=== PATIENT | female | born 1945 | race Caucasian/White ===

== ENCOUNTER 2018-02-25 05:44 | Day surgery (SDC) | payer MEDICARE, OTHER ==
[2018-02-25] MEDS ORDERED: DIPRIVAN 200 MG/20 ML IV ONE (05:45)
[2018-02-25] MEDS ORDERED: Lactated Ringers 1,000 ML IV SCH (06:30)
[2018-02-25 08:36] VITALS: PULSE 70; O2SAT 97
[2018-02-25 08:58] VITALS: BP 155/85
--- NOTE | 2018-02-25 12:53 | OP ---
SURGERY DATE/TIME: 02/25/2018 0658 PREOPERATIVE DIAGNOSIS: Screening exam. POSTOPERATIVE DIAGNOSIS: Normal colon. PROCEDURE: Colonoscopy. SURGEON: Dr. Pederson. ANESTHESIA: MAC. Medications given by anesthesia department. HISTORY: The patient is a 72 year-old white female presenting now for colonoscopic evaluation. She was appraised of the risks of the procedure including the risk of perforation, phlebitis, untoward reaction to medication, bleeding and missed lesions. The patient verbalized her understanding and desired to have the procedure performed. DESCRIPTION OF PROCEDURE: The patient was given the medications by the anesthesia department. She had continuous pulse oximetry, ECG monitoring, intermittent blood pressure monitoring and tidal CO2 monitoring during the examination. She was placed in the left lateral decubitus position. A digital rectal examination was performed and revealed normal anal sphincter tone and no masses. The flexible Olympus pediatric colonoscope was used to intubate the rectum. A view of the colon was developed sequentially to the cecum. Upon insertion and withdrawal, including a retroflex view in the rectum, no mucosal lesions were encountered. The scope was removed from the patient who tolerated the procedure well and was sent back to OP recovery in good condition. The prep was noted to be fair.
== END 2018-02-25 08:55 | disposition home or self-care (01) ==
LOC: SDC 05:44
PROVIDERS: ATTEND Family Medicine
DX: Z12.11 Encounter for screening for malignant neoplasm of colon (principal)
CPT/HCPCS: 99100; J2704

== ENCOUNTER 2022-11-17 21:41 | Emergency (ER) | payer MEDICARE, OTHER ==
--- NOTE | 2022-11-17 22:58 | ERPHSYRPT ---
- History of Present Illness Time Seen by Provider: 11/17/22 22:58 Source: patient Exam Limitations: no limitations Physician History: Patient presents w/ worsening BP over the past week BP 190s/100s at home She reports EVANS and nausea, but denies CP, palpitations, SOB or vomiting. She is compliant w/ BP meds No recent med changes Recently took abx for tooth infection Timing/Duration: day(s) (3), gradual onset Activities at Onset: none Quality: other (na) Location: other (na) Severity of Pain-Max: none Severity of Pain-Current: none Modifying Factors: Improves With: other (na) Nitro Today/Relief: no nitro taken today Aspirin Treatment Today: no aspirin today Associated Symptoms: nausea, headaches, No vomiting, No abdominal pain, No shortness of breath, No heartburn, No diaphoresis, No cough, No chills, No chest pain, No fever Prior Chest Pain/Cardiac Workup: no prior chest pain Allergies/Adverse Reactions: Sulfa (Sulfonamide Antibiotics) Allergy (Intermediate, Verified 11/17/22 23:10) Diarrhea Home Medications: Amoxicillin 500 mg PO Q6H 11/17/22 [History] Famotidine 20 mg [Pepcid 20 MG] 20 mg PO BID 11/17/22 [History] Lisinopril 10 mg [Zestril 10 MG] 10 mg PO DAILY 11/17/22 [History] Metoprolol Succinate 25 mg PO BID 11/17/22 [History] Omeprazole 40 mg PO DAILY 11/17/22 [History] Rosuvastatin Calcium 20 mg PO HS 11/17/22 [History] - Review of Systems Constitutional: No Symptoms Eyes: No Symptoms Ears, Nose, & Throat: No Symptoms Respiratory: No Symptoms Cardiac: No Symptoms Abdominal/Gastrointestinal: Nausea, No Abdominal Pain, No Vomiting, No Diarrhea, No Constipation, No Hematemesis, No Hematochezia, No Melena, No Appetite Changes Genitourinary Symptoms: No Symptoms Musculoskeletal: No Symptoms Skin: No Symptoms Neurological: No Symptoms Psychological: No Symptoms Endocrine: No Symptoms Hematologic/Lymphatic: No Symptoms Immunological/Allergic: No Symptoms - Past Medical History Pertinent Past Medical History: Yes Neurological History: No Pertinent History ENT History: No Pertinent History Cardiac History: No Pertinent History Respiratory History: No Pertinent History Endocrine Medical History: No Pertinent History Musculoskeletal History: Fractures GI Medical History: GERD, Polyps History: No Pertinent History Psycho-Social History: No Pertinent History Female Reproductive Disorders: No Pertinent History Other Medical History: REFLUX, VITAMIN D DEFICIENCY - Past Surgical History Past Surgical History: Yes Neuro Surgical History: No Pertinent History Cardiac: No Pertinent History Respiratory: No Pertinent History Gastrointestinal: No Pertinent History Genitourinary: No Pertinent History Musculoskeletal: Orthopedic Surgery Female Surgical History: Hysterectomy Other Surgical History: left knee scope - Social History Smoking Status: Never smoker Exposure to second hand smoke: No Drug Use: none - Nursing Vital Signs Nursing Vital Signs: Initial Vital Signs Temperature 97.2 F 11/17/22 22:51 Pulse Rate 68 11/17/22 22:51 Respiratory Rate 18 11/17/22 22:51 Blood Pressure 175/79 11/17/22 22:51 O2 Sat by Pulse Oximetry 98 11/17/22 22:51 Pain Scale Pain Intensity 0 - Physical Exam General Appearance: no apparent distress Eye Exam: PERRL/EOMI, eyes nml inspection Ears, Nose, Throat Exam: normal ENT inspection Neck Exam: normal inspection, non-tender, supple, full range of motion Respiratory Exam: normal breath sounds, lungs clear, airway intact, No chest tenderness, No respiratory distress Cardiovascular Exam: regular rate/rhythm, normal heart sounds, capillary refill <2 sec, No edema Gastrointestinal/Abdomen Exam: soft, normal bowel sounds, No tenderness Extremity Exam: normal inspection, normal range of motion, No swelling, No tenderness Neurologic Exam: alert, oriented x 3, cooperative, scientific software developer II-XII nml as tested, normal mood/affect, nml cerebellar function, nml station & gait, sensation nml, No slurred speech, No aphasia, No dysarthria Skin Exam: normal color, warm, dry SpO2 Interpretation: normal O2 Delivery: Room Air - Course Nursing assessment & vital signs reviewed: Yes EKG Interpreted by Me: RATE (69), Sinus Rhythm, NORMAL AXIS, NORMAL INTERVALS, NORMAL ST-T Ordered Tests: Medication Summary Discontinued Medications Generic Name Dose Route Start Last Admin Trade Name Freq PRN Reason Stop Dose Admin Hydralazine HCl 10 mg 11/17/22 23:14 11/17/22 23:54 Hydralazine Hcl 20 Mg/Ml Vial IV 11/17/22 23:15 10 mg STAT ONE Administration Hydralazine HCl Confirm 11/17/22 23:51 Hydralazine Hcl 20 Mg/Ml Vial Administered 11/17/22 23:52 Dose 20 mg .ROUTE .STK-MED ONE Lab/Rad Data: Laboratory Result Diagrams 11/17/22 23:20 11/17/22 23:20 Laboratory Results 11/17/22 11/17/22 11/17/22 Range/Units 23:20 23:20 23:20 WBC 4.7 (4.0-10.5) x10^3/uL RBC 4.34 (4.1-5.4) x10^6/uL Hgb 11.8 L (12.0-16.0) g/dL Hct 37.4 (35-47) % MCV 86.2 (78-100) fL MCH 27.2 (26-32) pg MCHC 31.6 L (32-36) g/dL RDW 13.9 (11.5-14.0) % Plt Count 221 (150-450) x10^3/uL MPV 10.5 (7.5-11.0) fL Gran % 56.7 (36.0-66.0) % Immature Gran % (Auto) 0.4 (0.00-0.4) % Nucleat RBC Rel Count 0.0 (0.00-0.1) % Eos # (Auto) 0.15 (0-0.5) x10^3/uL Immature Gran # (Auto) 0.02 (0.00-0.03) x10^3u/L Absolute Lymphs (auto) 1.31 (1.0-4.6) x10^3/uL Absolute Monos (auto) 0.52 (0.0-1.3) x10^3/uL Absolute Nucleated RBC 0.00 (0.00-0.01) x10^3u/L Lymphocytes % 27.6 (24.0-44.0) % Monocytes % 11.0 (0.0-12.0) % Eosinophils % 3.2 (0.00-5.0) % Basophils % 1.1 (0.0-0.4) % Absolute Granulocytes 2.69 (1.4-6.9) x10^3/uL Basophils # 0.05 (0-0.4) x10^3/uL Sodium 140 (137-145) mmol/L Potassium 3.6 (3.5-5.1) mmol/L Chloride 108 H (98-107) mmol/L Carbon Dioxide 27 (22-30) mmol/L Anion Gap 8.5 (5-15) MEQ/L BUN 15 (7-17) mg/dL Creatinine 0.61 (0.52-1.04) mg/dL Estimated GFR > 60.0 ML/MIN Glucose 117 H (74-106) mg/dL Lactic Acid (0.4-2.0) Calcium 8.8 (8.4-10.2) mg/dL Magnesium 2.1 (1.6-2.3) mg/dL Total Bilirubin 0.40 (0.2-1.3) mg/dL AST 27 (14-36) U/L ALT 24 (0-35) U/L Alkaline Phosphatase 109 (38-126) U/L Troponin I < 0.012 (0.000-0.034) ng/mL NT-Pro-B Natriuret Pep 280 (<300) pg/mL Serum Total Protein 6.8 (6.3-8.2) g/dL Albumin 3.8 (3.5-5.0) g/dL TSH 3rd Generation 4.140 (0.47-4.68) mIU/L 11/17/22 Range/Units 23:19 WBC (4.0-10.5) x10^3/uL RBC (4.1-5.4) x10^6/uL Hgb (12.0-16.0) g/dL Hct (35-47) % MCV (78-100) fL MCH (26-32) pg MCHC (32-36) g/dL RDW (11.5-14.0) % Plt Count (150-450) x10^3/uL MPV (7.5-11.0) fL Gran % (36.0-66.0) % Immature Gran % (Auto) (0.00-0.4) % Nucleat RBC Rel Count (0.00-0.1) % Eos # (Auto) (0-0.5) x10^3/uL Immature Gran # (Auto) (0.00-0.03) x10^3u/L Absolute Lymphs (auto) (1.0-4.6) x10^3/uL Absolute Monos (auto) (0.0-1.3) x10^3/uL Absolute Nucleated RBC (0.00-0.01) x10^3u/L Lymphocytes % (24.0-44.0) % Monocytes % (0.0-12.0) % Eosinophils % (0.00-5.0) % Basophils % (0.0-0.4) % Absolute Granulocytes (1.4-6.9) x10^3/uL Basophils # (0-0.4) x10^3/uL Sodium (137-145) mmol/L Potassium (3.5-5.1) mmol/L Chloride (98-107) mmol/L Carbon Dioxide (22-30) mmol/L Anion Gap (5-15) MEQ/L BUN (7-17) mg/dL Creatinine (0.52-1.04) mg/dL Estimated GFR ML/MIN Glucose (74-106) mg/dL Lactic Acid 0.7 (0.4-2.0) Calcium (8.4-10.2) mg/dL Magnesium (1.6-2.3) mg/dL Total Bilirubin (0.2-1.3) mg/dL AST (14-36) U/L ALT (0-35) U/L Alkaline Phosphatase (38-126) U/L Troponin I (0.000-0.034) ng/mL NT-Pro-B Natriuret Pep (<300) pg/mL Serum Total Protein (6.3-8.2) g/dL Albumin (3.5-5.0) g/dL TSH 3rd Generation (0.47-4.68) mIU/L - Progress Progress: improved Air Movement: good Progress Note: Patient given Hydralazine and BP responded well. Patient denied EVANS or nausea after BP improved. CP w/u neg for cardiac etiology. Hb was found to be 11.8. I increased her Lisinopril to 20mg BID from 10mg BID. I encouraged her to keep a BP log and f/u w/ her PCP for further management. Counseled pt/family regarding: lab results, diagnosis, need for follow-up Medical Desision Making - Diagnostic Testing Diagnostic test were ordered, analyzed, and reviewed by me: Yes - Risk of complications The pt has a mod risk of morbidity or mortality based on: Need for prescription drug management - Departure Departure Disposition: Home Clinical Impression: Hypertensive urgency Condition: Good Critical Care Time: No Referrals: ALAN LEWIS NP [Primary Care Provider] - Follow up/PCP as directed Instructions: Malignant Hypertension (DC) Additional Instructions: Take 2 10mg tablets of Lisinopril twice a day until your current script runs out, then start the 20mg tablet twice a day after. Please keep a log of your BP for your supervisor car and yard. Prescriptions: Lisinopril 20 mg [Zestril 20 MG] 20 mg PO BID #30 tablet
[2022-11-17] MEDS ORDERED: APRESOLINE 20 MG/ML INJ IV ONE (23:14)
[2022-11-17 23:24] LABS: Absolute Neutrophil Ct (ANC) 2.69 x10^3/uL (1.4-6.9); BASOPHIL % 1.1 % (0.0-0.4); Basophil (Absolute #) 0.05 x10^3/uL (0-0.4); Eosinophil % 3.2 % (0.00-5.0); Eosinophil (Absolute #) 0.15 x10^3/uL (0-0.5); Hematocrit 37.4 % (35-47); Hemoglobin 11.8 g/dL (12.0-16.0); IMMATURE GRAN # 0.02 x10^3u/L (0.00-0.03); IMMATURE GRAN % 0.4 % (0.00-0.4); Lymphocyte (Absolute #) 1.31 x10^3/uL (1.0-4.6); Lymphocytes % 27.6 % (24.0-44.0); Mean Cell Volume 86.2 fL (78-100); Mean Corpuscular Hemoglobin 27.2 pg (26-32); Mean Corpuscular Hgb Concent. 31.6 g/dL (32-36); Mean Platelet Volume 10.5 fL (7.5-11.0); Monocyte (Absolute #) 0.52 x10^3/uL (0.0-1.3); Neutrophil % 56.7 % (36.0-66.0); Platelet Count 221 x10^3/uL (150-450); Red Blood Count 4.34 x10^6/uL (4.1-5.4); Red Cell Distribution Width 13.9 % (11.5-14.0); White Blood Count 4.7 x10^3/uL (4.0-10.5)
[2022-11-17] MEDS ORDERED: APRESOLINE 20 MG/ML INJ ONE (23:51)
[2022-11-18 00:12] LABS: ALBUMIN 3.8 g/dL (3.5-5.0); ALKALINE PHOSPHATASE 109 U/L (38-126); ANION GAP 8.5 MEQ/L (5-15); BLOOD UREA NITROGEN 15 mg/dL (7-17); CHLORIDE 108 mmol/L (98-107); Calcium 8.8 mg/dL (8.4-10.2); Carbon Dioxide 27 mmol/L (22-30); Creatinine 1 0.61 mg/dL (0.52-1.04); EST GLOMERULAR FILTRATION RATE > 60.0 ML/MIN; Glucose 117 mg/dL (74-106); MAGNESIUM 2.1 mg/dL (1.6-2.3); NT PRO BNPII 280 pg/mL (<300); Potassium 3.6 mmol/L (3.5-5.1); SGOT/AST 27 U/L (14-36); SGPT/ALT 24 U/L (0-35); SODIUM 140 mmol/L (137-145); Total Protein 6.8 g/dL (6.3-8.2)
[2022-11-18 00:37] VITALS: PULSE 78; O2SAT 98
[2022-11-18 01:10] VITALS: BP 148/94
== END 2022-11-18 01:09 | disposition home or self-care (01) ==
LOC: ED 21:41
DX: I16.0 Hypertensive urgency (principal); I10 Essential (primary) hypertension; Z79.899 Other long term (current) drug therapy
CPT/HCPCS: 36000; 36415; 80053; 83605; 83735; 83880; 84443; 84484; 85025; 93005; 93041; 96374; 99284; J0360

== ENCOUNTER 2025-05-23 15:53 | Emergency (ER) | payer MEDICARE, OTHER ==
[2025-05-23 17:34] VITALS: BP 188/78; TEMP 95.8; O2SAT 98
[2025-05-23 19:40] VITALS: PULSE 86; RESP 20
--- NOTE | 2025-05-23 19:44 | ERPHSYRPT ---
- History of Present Illness Time Seen by Provider: 05/23/25 19:36 Source: patient, family Exam Limitations: no limitations Patient Subjective Stated Complaint: fell and landed on left hand Triage Nursing Assessment: pt presents to ER with daughter she is ambulating by self , gait is steady, patient was coming home from work and slipped on cement and fell and caught herself with herleft hand and its now swolen and bruised all over extremely painful concerned she might have broke. no open areas, radial pulses present.patient states thumb has tingling sensation running in it when moving Physician History: Pt had onset of paIN/SWELLING LEFT WRIST AFTER FALL TRIPPING ON CONCRETE. sHE HAS NO OTHER SYMPTOMS OR REPORTED INJURIES AND HAD NO DIZZINESS OR PRODROME AND ON NO BLOOD THINNER OTHER THAN DAILY asa. She has full ROM all other ext , elbow , shoulder or affected left wrist and chest abd and entire spine all nontender . N/V intact diatally on exam. I advised that even though we see no fx on x-ray, there still can be a fracture of schaphopid or other which may take time to appear on x-ray, and we will Discussed with pt and available family risks and benefits of testing/Tx including xray and splinting as possible occult Fx scaphoid or other wrist injuries. and they wish to proceed so these are ordered. Results discussed with pt and available family. I also advised that there still could be additional undetected occult injuries but pt and family feel that they are OK with no furhter w/u in ER and that is reasonable in absence of symptoms or findings and they will return if other symptoms and have the capacity to make this choice. WIll have her see orhto clinic Sunday or return meantime if any concerns. Occurred: this afternoon Method of Injury: fell Quality: constant, aching Severity of Pain-Max: moderate Severity of Pain-Current: moderate Extremities Pain Location: wrist: left, thumb: left Modifying Factors: Improves With: cold therapy, immobilization, movement Associated Symptoms: none Allergies/Adverse Reactions: Sulfa (Sulfonamide Antibiotics) Allergy (Intermediate, Verified 05/23/25 17:39) Diarrhea Home Medications: Famotidine 20 mg [Pepcid 20 MG] 20 mg PO BID 11/17/22 [History] Lisinopril 10 mg [Zestril 10 MG] 10 mg PO DAILY 11/17/22 [History] Metoprolol Succinate 25 mg PO BID 11/17/22 [History] Omeprazole 40 mg PO DAILY 11/17/22 [History] Rosuvastatin Calcium 20 mg PO HS 11/17/22 [History] Hx Tetanus, Diphtheria Vaccination/Date Given: Yes Hx Influenza Vaccination/Date Given: Yes Hx Pneumococcal Vaccination/Date Given: Yes Travel Risk - International Travel Have you traveled outside of the country in past 3 weeks: No - Emerging Infectious Disease Are you exhibiting symptoms associated with any current EIDs: No - Review of Systems Constitutional: No Fever, No Chills Eyes: No Symptoms Ears, Nose, & Throat: No Symptoms Respiratory: No Cough, No Dyspnea Cardiac: No Chest Pain, No Edema, No Syncope Abdominal/Gastrointestinal: No Abdominal Pain, No Nausea, No Vomiting, No Diarrhea Genitourinary Symptoms: No Dysuria Musculoskeletal: Fall, Injury, Joint Pain, Joint Swelling, No Back Pain, No Neck Pain Skin: No Rash Neurological: No Dizziness, No Focal Weakness, No Sensory Changes Psychological: No Symptoms Endocrine: No Symptoms Hematologic/Lymphatic: No Symptoms Immunological/Allergic: No Symptoms All Other Systems: Reviewed and Negative - Past Medical History Pertinent Past Medical History: Yes Neurological History: No Pertinent History ENT History: No Pertinent History Cardiac History: No Pertinent History Respiratory History: No Pertinent History Endocrine Medical History: No Pertinent History Musculoskeletal History: Fractures GI Medical History: GERD, Polyps History: No Pertinent History Psycho-Social History: No Pertinent History Female Reproductive Disorders: No Pertinent History Other Medical History: REFLUX, VITAMIN D DEFICIENCY - Past Surgical History Past Surgical History: Yes Neuro Surgical History: No Pertinent History Cardiac: No Pertinent History Respiratory: No Pertinent History Gastrointestinal: No Pertinent History Genitourinary: No Pertinent History Musculoskeletal: Orthopedic Surgery Female Surgical History: Hysterectomy Other Surgical History: left knee scope - Social History Smoking Status: Never smoker Exposure to second hand smoke: No Drug Use: none - Social Determinants of Health Will the patient participate in the screening: Yes Do you worry about a steady place to live?: No Do you have any problems with any of the following?: No known problems In the past 12 months,have you had to go without utilities?: No Transportation Issues: No Has anyone in your support network made you feel unsafe?: No Have you or anyone in your house had to go w/o enough food: No - Nursing Vital Signs Nursing Vital Signs: Initial Vital Signs Temperature 95.8 F 05/23/25 16:54 Pulse Rate 64 05/23/25 16:54 Respiratory Rate 12 05/23/25 16:54 Blood Pressure 188/78 05/23/25 16:54 O2 Sat by Pulse Oximetry 98 05/23/25 16:54 Pain Scale Pain Intensity 6 - Physical Exam General Appearance: alert Eyes, Ears, Nose, Throat Exam: moist mucous membranes Neck Exam: normal inspection, non-tender, supple, full range of motion Cardiovascular/Respiratory Exam: chest non-tender, normal breath sounds, regular rate/rhythm, no respiratory distress Abdominal Exam: non-tender, No guarding Back Exam: normal inspection, normal range of motion, No vertebral tenderness Shoulder Exam: normal inspection, non-tender, no evidence of injury, normal ROM Elbow/Forearm Exam: normal inspection, non-tender, no evidence of injury, normal ROM Wrist Exam: bone tenderness (left schaphoid), ecchymosis, swelling Hand Exam: normal ROM, bone tenderness (left schaphoid and base of thumb) DTR - Upper Extremity Exam: bicep (R): 2+, bicep (L): 2+, tricep (R): 2+, tricep (L): 2+ Neuro/Tendon Exam: normal sensation, normal motor functions, normal tendon functions, no evidence tendon injury Mental Status Exam: alert, oriented x 3, cooperative Skin Exam: normal color, warm, dry SpO2 Interpretation: normal SpO2: 98 O2 Delivery: Room Air Procedures - Splinting Time of Procedure: 19:46 Location of Splint: Left, Hand, Wrist Type of Splint: Velcro Splint Splint Applied By: ED Nurse Pre-Proc Neuro Vasc Exam: normal Post-Proc Neuro Vasc Exam: neurovascular intact, good alignment, unchanged from pre-exam - Course Nursing assessment & vital signs reviewed: Yes - Radiology Exams Left Wrist X-ray Interpretation: Interpreted by me, Other (no obvious fracture - splint applied due to risk of occult schphoid fx) Ordered Tests: Active Orders 24 hr Category Date Time Status HAND (MINIMUM 3 VIEWS) Stat Exams 05/23/25 17:39 Taken - Progress Progress: improved, re-examined Progress Note: 05/23/25 19:53 pt declines pain med at this time. Counseled pt/family regarding: diagnosis, need for follow-up, rad results Medical Desision Making - Independent Historian Additional History obtained from: Family - Discussion of managment Reviewed:: Test results, Need for additional workup Will see patient: In office - Diagnostic Testing Diagnostic test were ordered, analyzed, and reviewed by me: Yes Radiological Interpretation: Interpreted by me - Risk of complications The pt has a mod risk of morbidity or mortality based on: Need for prescription drug management - Departure Departure Disposition: Home Clinical Impression: left wrist injury in scaphoid area Condition: Good Critical Care Time: No Referrals: ALAN LEWIS NP [Primary Care Provider, [facility]] - Follow up/P CP as directed Instructions: Hand Fracture (DC), Wrist fracture, Hand Fracture ED Additional Instructions: followup with your DrGreg on your blood pressure which was a little high. We are treating as though there could be a wrist fracture and would like you to see the ORtho clinic Sunday to consider cast and final x-ray review. Return meantime if any other symptoms or concerns as with a fall there can be initially undetected injuries without symptoms.
--- NOTE | 2025-05-23 20:29 | XRAY ---
Indication: Pain following fall. Comparison: None 3 view left hand demonstrates osteopenia, moderate/advanced 1st metacarpal multangular scaphoid degenerative changes, radiocarpal joint space narrowing, and ulnocarpal degenerative chondrocalcinosis. No acute bony, articular, or soft tissue abnormalities.
== END 2025-05-23 20:00 | disposition home or self-care (01) ==
LOC: ED 15:53
DX: S69.92XA Unspecified injury of left wrist, hand and finger(s), initial encounter (principal); W01.0XXA Fall on same level from slipping, tripping and stumbling without subsequent striking against object, initial encounter; Z79.899 Other long term (current) drug therapy